=== PATIENT | male | born 1990 | race Caucasian/White ===

== ENCOUNTER 2018-07-16 15:57 | Emergency (ER) | payer OTHER ==
[2018-07-16 16:14] VITALS: BP 138/98; PULSE 87; RESP 16; TEMP 97.2; O2SAT 99
== END 2018-07-16 16:51 | disposition home or self-care (01) | DRG 605 ==
LOC: ED 15:57
DX: S60.221A Contusion of right hand, initial encounter (principal); X58.XXXA Exposure to other specified factors, initial encounter
CPT/HCPCS: 73130; 99282